=== PATIENT | female | born 1945 | race Caucasian/White ===

== ENCOUNTER 2025-01-26 03:36 | Day surgery (SDC) | payer OTHER, SELFPAY ==
[2025-01-25 19:03] VITALS: BP 168/89
[2025-01-25 19:40] LABS: % Basophils 0.4 % (0-2); % Eosinophils 0.1 % (0-6); % Immature Granulocytes 0.3 % (0-0.5); % Lymphocytes 12.9 % (20.5-51.1); % Monocytes 8.7 % (1.7-9.3); % Neutrophils 77.6 % (42.2-75.2); Absolute Monocytes 0.7 10^3/uL (0.1-0.6); Hematocrit 37.7 % (37.0-47.0); Mean Corp Hgb Conc. 34.5 g/dL (33.0-37.0); Mean Corpuscular Hgb 32.7 pg (27.0-31.0); Mean Corpuscular Volume 94.7 fL (81.0-99.0); Mean Platelet Volume 11.4 fL (7.4-10.4); Nucleated Red Blood Cells % 0 %; Platelet Count 204 10^3/uL (130-400); Red Blood Cell Count 3.98 10^6/uL (4.20-5.40); Red Cell Dist. Width 12.4 % (11.5-14.5); White Blood Cell Count 7.7 10^3/uL (4.8-10.8)
[2025-01-25 19:57] LABS: ALT (SGPT) 12 U/L (0-35); AST (SGOT) 21 U/L (14-36); Albumin 4.7 g/dl (3.5-5.0); Alkaline Phosphatase 51 U/L (38-126); Blood Urea Nitrogen 13 mg/dl (7-17); Calcium 9.8 mg/dl (8.4-10.2); Carbon Dioxide 27 mmol/L (22-30); Chloride 102 mmol/L (98-107); Glucose 127 mg/dl (70-99); Lipase 48 U/L (23-300); Potassium 4.3 mmol/L (3.5-5.1); Sodium 135 mmol/L (135-145); Total Bilirubin 0.5 mg/dl (0.2-1.3); Total Protein 7.6 g/dl (6.3-8.2); eGFR > 60.00
[2025-01-25 20:06] LABS: Troponin I < 0.012 ng/ml
--- NOTE | 2025-01-25 21:51 | ED.GENMED ---
History of Present Illness
General
Chief Complaint: Abdominal Symptoms
Source: patient
Exam Limitations: none
Time Seen by Provider: 01/25/25 21:47
Nursing documentation reviewed up to this point in time: agreed with
History of Present Illness
History of Present Illness:
Patient is a 79-year-old female presents to the ER for evaluation. Patient started with abdominal pain dry heaves and nausea last night that persisted throughout the day. She has not had dry heaves today but is nauseous and complains of lower
abdominal pain. She denies any urinary frequency urgency or dysuria. Denies any constipation.
Has had colonoscopies in the past no prior history of diverticulitis. She is on pantoprazole for gastritis .
Past History
Past History
ED Past Medical History: Psychiatric (depression) and Other (osteoporosis)
ED Past Surgical History: None
Social History
Tobacco: Non-smoker
Review of Systems
Review of Systems
Allergies reviewed?: Yes
All Other Systems: ROS reviewed and negative except as documented in HPI and ROS
Constitutional: Reports no symptoms
ABD/GI: Reports abdominal pain and nausea; Denies vomiting, diarrhea or constipated
Phy Exam
General Physical Exam
General Presentation: no apparent distress
General age: appears stated age
General Skin: warm and dry
General Habitus: normal
General Mental: alert
General Hydration: appears well hydrated
Gastrointestinal Exam
Gastrointestinal Exam: soft and other (tender rlq pain suprapubic region )
Neurological Exam
Neurological Exam: alert and oriented x3
Musculoskeletal Exam
Musculoskeletal Exam: full ROM
Skin Exam
Skin Exam: normal color and warm/dry
Psychiatric Exam
Psychiatric Exam: normal mood/affect
Course
Orders/Labs/Results
Orders:
Orders
01/25/25 18:54
Electrocardiogram (*1) Urgent
Reason for Study: Other
Other Reason for Exam: Respiratory Distress
Cardiac Monitoring- Treatment ONCE
EKG- Treatment ONCE
IV Insert/Care/Rem.- Treatment PRN
CR Chest - 2 Views Urgent
Comment:
Reason For Exam: respiratory distress
O2 Therapy [RESP] Urgent
Titrate/Wean O2 to maintain O2 sat greater than (%): 93
Special Instructions: TO MAINTAIN CONTINUOUS O2 SATS >/= 93%
Pulse Ox/cont/shift [RESP] Urgent
Quantity: 1
Special Instructions: continuous pulse ox
01/25/25 19:16
Complete Blood Count/With Diff Urgent
Comprehensive Metabolic Panel Urgent
Lipase Urgent
Troponin I Urgent
01/25/25 22:01
CT Abd/pel W Iv And Oral Contr Urgent
Comment:
Reason For Exam: suprapubic/rlq pain
Iohexol [Omnipaque] See Protocol PO NOW STA
01/26/25 00:45
Piperacillin/Tazo 3.375 Gram [Zosyn] 3.375 gram in 50 ml IV NOW
Abnormal Lab Results
01/25/25
19:16
RBC 3.98 L 10^6/uL
(4.20-5.40)
MCH 32.7 H pg
(27.0-31.0)
MPV 11.4 H fL
(7.4-10.4)
Absolute Lymphs (auto) 1.0 L 10^3/uL
(1.2-3.4)
Absolute Monos (auto) 0.7 H 10^3/uL
(0.1-0.6)
Neutrophils % 77.6 H %
(42.2-75.2)
Lymphocytes % 12.9 L %
(20.5-51.1)
Glucose 127 H mg/dl
(70-99)
01/25/25 19:16
01/25/25 19:16
Vital Signs
Initial and Last Documented VS:
Initial Vital Signs
Temp Pulse Resp BP Pulse Ox
98.7 F 66 18 168/89 98
01/25/25 19:03 01/25/25 19:03 01/25/25 19:03 01/25/25 19:03 01/25/25 19:03
Last Documented Vital Signs
Temp Pulse Resp BP Pulse Ox
98.7 F 74 16 111/89 97
01/25/25 19:03 01/26/25 00:06 01/26/25 00:06 01/26/25 00:05 01/26/25 00:08
MDM/Problems Addressed
Differential Diagnosis Includes:
Not limited to diverticulitis UTI appendicitis
MDM/Problems Addressed:
Patient is a 79-year-old female presented with abdominal pain. Patient presents awake alert no acute distress afebrile normal white count acute appendicitis on CAT scan. She is not on blood thinners. Case reviewed with surgeon on-call Dr. Duran
.will admit keep n.p.o. and order Zosyn.
*Radiology
Radiology exam reviewed: radiology read reviewed
*Pulse Oximetry
SaO2: 98
Oxygen Mode of Delivery: Room air
Patient hypoxic: no
*Critical Care Note
Total Time (30-74mins, 75-104mins- exclusive of procedures): Not Applicable
Patient Management
Discussion with other providers: Test And Turn Up Technician (DR Duran )
ED Attending Note
-
Portions of this chart may have been created with voice recognition software.� Occasional wrong word or��sound alike� substitutions may have occurred due to the inherent limitations of voice recognition software.
Discharge Plan
Departure
Patient Disposition: Admit
Date of Disposition: 01/26/25
Time of Disposition: 00:54
Admit to: Med/Surg
Admit to doctor: hospitalist
Presentation/result/management discussed w/ accepting MD/DO: Hospitalist
Patient with high blood pressure during this ER visit?: Yes
Condition: Fair
Covid-19: Not Applicable
Discharge Problem:
Acute appendicitis
Prescriptions:
No Action
pantoprazole [Protonix] 40 mg tablet,delayed release (DR/EC)
40 mg PO HS Qty: 14 0RF
raloxifene 60 mg Tablet
60 mg PO DAILY
escitalopram oxalate [Lexapro] 10 mg Tablet
10 mg PO HS
Referrals:
Sherrell Rob PA-C [Family Provider, Family Practice]
Interventions
Interventions:
*Risk Screen - Suicide Last Done: 01/25/25 19:08
*General Assessment Last Done: 01/25/25 22:01
*Neglect/Abuse Screening Last Done: 01/25/25 19:08
*ED- Fall Risk Assessment Last Done: 01/25/25 21:20
NU-Dumyyg-Dfzemzgdkq Assessment Last Done: 01/25/25 23:25
Discharge Date and Time
Print Language: POLISH
[2025-01-25 22:00] VITALS: BMI 22.7
[2025-01-25] MEDS: OMNIPAQUE 50 ML PO (22:10)
[2025-01-25 22:50] VITALS: BP 147/62
[2025-01-25 23:00] VITALS: BP 149/68
[2025-01-26] VITALS (13 sets, daily range): BP systolic 108–135; BP diastolic 50–89; BMI 21.8
[2025-01-26] MEDS: ZOSYN 50 IV ×2 (00:51→05:03)
[2025-01-26] MEDS: NSS 1000 IV ×2 (01:07→04:46)
--- NOTE | 2025-01-26 02:15 | HPS.HSE ---
Family Physician
-
Family Physician: Sherrell Rob
Chief Complaint
-
Abdominal pain
History of Present Illness
This is a 79-year-old female who has a past medical history significant for gastritis, depression and osteoporosis on raloxifene who presents with abdominal symptoms.
She reports onset of crampy abdominal pain with associated dry heaving about 24 hours ago. She denies any Pain. There is no associated radiation. She denies any vomiting. She denies any diarrhea. She has not had any fevers or chills. Patient
thought that this may be related to her gastritis and she is continue to take PPI. She denies any melena or hematochezia. She has no known sick contacts.
In the ED she has stated that she feels better but she currently reports that she still has some soreness in the right lower quadrant.
When she arrived in the emergency department she was afebrile, blood pressure was 110/80 with a pulse of 74 and she was satting 97% on room air.
She has no leukocytosis hemoglobin and platelets were normal. Electrolytes, BUN, creatinine were normal. LFTs were normal.
She had a CT of the abdomen pelvis with contrast showing dilated appendix measuring up to 12 mm and compatible with acute appendicitis, small free fluid, retrocecal location of the appendix.
Medical History
Past Medical History
Past Medical History: Reports GERD
Past Surgical History: Reports None
Social History
Tobacco: Non-smoker
Alcohol: None
Drug: None
Personal:
Living: With Family
Employment: Not Employed
Family History
Family History: Not pertinent
Allergies / Home Medications
Allergies reflects when Allergies were last updated in [facility].
Home Medications with original date entered in [facility]
Allergy/Medication List:
Allergies
Allergy/AdvReac Type Severity Reaction Status Date / Time
No Known Allergies Allergy Unverified 02/18/22 16:36
Home Medications
pantoprazole 40 mg tablet,delayed release (Protonix) 40 mg PO HS #14 tabs 02/18/22
escitalopram oxalate 10 mg tablet (Lexapro) 10 mg PO HS 01/25/25
raloxifene 60 mg tablet 60 mg PO DAILY 01/25/25
Review of Systems
-
Constitutional: Reports No Symptoms
EENT: Reports No Symptoms
Respiratory: Reports No Symptoms
Cardiac: Reports No Symptoms
Abdomen/GI: Reports No Symptoms
: Reports No Symptoms
Musculoskeletal: Reports No Symptoms
Skin: Reports No Symptoms
Neurological: Reports No Symptoms
Endocrine: Reports No Symptoms
Hematologic/Lymphatic: Reports No Symptoms
Psych: Reports No Symptoms
Physical Exam
Vital Signs
Vital Signs
Temp Pulse Resp BP Pulse Ox
98.7 F 74 16 111/89 97
01/25/25 19:03 01/26/25 00:06 01/26/25 00:06 01/26/25 00:05 01/26/25 00:08
Physical Exam
General: Well Developed, Well Nourished and No Apparent Distress
HEENT: NormoCephalic, Moist mucous membranes and Atraumatic
Respiratory: Clear
Cardiac: S1/S2 and Regular Rhythm; No Murmur or Rub
GI: Soft, Non Tender, Non Distended and Normal Bowel Sounds; No Organomegaly
Rectal: Deferred by Provider
Musculoskeletal: No Clubbing, No Cyanosis and No Edema
Skin: No Rash
Neuro: Nonfocal/grossly intact
Laboratory Results
-
01/25/25 19:16
01/25/25 19:16
Laboratory Results
Total Bilirubin 0.5 mg/dl (0.2-1.3) 01/25/25 19:16
AST 21 U/L (14-36) 01/25/25 19:16
ALT 12 U/L (0-35) 01/25/25 19:16
Alkaline Phosphatase 51 U/L (38-126) 01/25/25 19:16
Troponin I < 0.012 ng/ml 01/25/25 19:16
Lipase 48 U/L (23-300) 01/25/25 19:16
Data Reviewed
-
CT Scan: Report Reviewed by me
Lab Data: Labs Reviewed by me
Old Records: Reviewed
Impression/Plan
-
IMPRESSION:
79-year-old female with past medical history of gastritis presenting to the emergency department with approximately 1-1/2 days of abdominal pain which she described as crampy and so nausea with dry urine but no nausea or vomiting and no diarrhea.
She has been afebrile and has no leukocytosis. She has normal labs otherwise. Exam is benign. CT scan is compatible with acute appendicitis.
PLAN:
Abdominal pain with possible appendicitis on CT scan
- Admit to MedSurg
- N.p.o.
- Pain control and antiemetics
- PPI IV daily
- Continue gentle hydration
- IV Unasyn for now
- Surgery consultation
DVT prophylaxis�heparin subcu
CODE STATUS�full code
--- NOTE | 2025-01-26 02:28 | HPS.HSE ---
Addendum entered and electronically signed by Jarrell Falcon MD 01/26/25 08:51:
Patient seen and examined independently of admitting nurse practitioner. Agree with documented H&P with additions noted here.
HPI: 79-year-old female with PMH including depression, GERD and osteoporosis who presents with the acute onset of abdominal pain which started 36 hours ago. It has persisted and localized towards right abdomen. Nausea/anorexia and some dry heaves.
No similar episodes in the past. No past abdominal or other surgical history.
AFVSS
NAD AAO x 3
ABD: Soft, nondistended, tenderness to palpation localizing to the right lower quadrant. No rebound or guarding.
CT abdomen/pelvis imaging personally reviewed. Dilated fluid-filled appendix in a retrocecal location going up towards the right upper quadrant adjacent to the kidney. Some free fluid in the pelvis. No extraluminal air. Surrounding reactive
inflammatory changes but no abscess or phlegmon.
Assessment: 79-year-old female with acute appendicitis.
Reviewed with patient history, examination and CT imaging consistent with acute appendicitis. Discussed both operative and nonoperative management options and associated risks/benefits of approaches. Patient is in agreement to proceed with
appendectomy.
Laparoscopic appendectomy reviewed in detail with the patient. Discussed operative technique utilizing diagrams or drawings, alternative management options, benefits and potential risks such as but not limited to bleeding, infectious or wound
healing complications, iatrogenic injury to surrounding viscera. Discussed the typical postoperative recovery pending operative findings.
Any of the patient's concerns or questions were fully addressed and informed consent was obtained.
Plan: OR for laparoscopic appendectomy.
Empiric antibiotic coverage with Zosyn.
Nothing by mouth, IV fluid hydration and supportive care awaiting operative room availability.
SCDs for DVT prophylaxis
Original Note:
Family Physician
-
Family Physician: Sherrell Rob
Chief Complaint
-
Abdominal pain
History of Present Illness
a 79 years old female with PMH of depression, GERD, and osteoporosis Present to ER with a complain of abdominal pain that started yesterday at middle of abdomen then localized to RLQ associated with nausea and dry heaves. Pain was persisted during
the day. Denies vomiting, diarrhea, constipation, urinary symptoms, sob, chest pain or any other symptoms.
Medical History
Past Medical History
Past Medical History: Reports GERD, Psychiatric (depression ) and Other (osteoporosis)
Past Surgical History: Reports None
Social History
Tobacco: Non-smoker
Alcohol: None
Drug: None
Personal:
Living: With Family
Employment: Retired
Family History
Family History: Not pertinent
Allergies / Home Medications
Allergies reflects when Allergies were last updated in [facility].
Home Medications with original date entered in [facility]
Allergy/Medication List:
Patient Allergies
Allergy/AdvReac Type Severity Reaction Status Date / Time
No Known Allergies Allergy Unverified 02/18/22 16:36
Home Medications Table - record
�Medication �Instructions �Recorded �Confirmed
pantoprazole 40 mg tablet,delayed 40 mg PO HS #14 tabs 02/18/22 01/25/25
release (Protonix)
escitalopram oxalate 10 mg tablet 10 mg PO HS 01/25/25 01/25/25
(Lexapro)
raloxifene 60 mg tablet 60 mg PO DAILY 01/25/25 01/25/25
Review of Systems
-
A 12 point ROS was completed and negative except as noted: Yes
Constitutional: Reports No Symptoms
Respiratory: Reports No Symptoms
Cardiac: Reports No Symptoms
Abdomen/GI: Reports Abdominal Pain (RLQ) and Nausea
Physical Exam
Vital Signs
Vital Signs
Temp Pulse Resp BP Pulse Ox
98.7 F 74 16 111/89 97
01/25/25 19:03 01/26/25 00:06 01/26/25 00:06 01/26/25 00:05 01/26/25 00:08
Physical Exam
General: No Apparent Distress
Respiratory: Clear
Cardiac: Regular Rhythm
GI: Soft, Non Distended, Normal Bowel Sounds and Tender (RLT and middle of the abdomen )
Musculoskeletal: No Edema
Neuro: Awake and AO x 3
Psych: Calm
Laboratory Results
-
01/25/25 19:16
01/25/25 19:16
Laboratory Results
Total Bilirubin 0.5 mg/dl (0.2-1.3) 01/25/25 19:16
AST 21 U/L (14-36) 01/25/25 19:16
ALT 12 U/L (0-35) 01/25/25 19:16
Alkaline Phosphatase 51 U/L (38-126) 01/25/25 19:16
Troponin I < 0.012 ng/ml 01/25/25 19:16
Lipase 48 U/L (23-300) 01/25/25 19:16
Data Reviewed
-
CT Scan: Discussed with Patient
Impression/Plan
-
Abd/PLVS CT shows Dilated appendix measuring up to 12 mm compatible with acute appendicitis. Retrocecal location of the appendix. Small Free fluid. Retrocecal location of the appendix
IMPRESSION:
acute appendicitis
PLAN:
Admit/ med-surg/ Dr Duran(surgical services).
NPO
IVF
Antiemetics as needed
analgesics as needed
Zosyn
Depression
on Lexapro
Osteoporosis
on raloxifene
GERD
C/w Protonix
DVT prophylaxis Lovenox sq
Code status: full code
--- NOTE | 2025-01-26 04:48 | PTCARENOTE ---
Pt arrived 0430 from ED. Pt was able to ambulate to bed. VSS. IVF infusing. head to toe assessment complete. Oriented to room and call pedro. bed locked and in lowest position.
[2025-01-26] MEDS: ZOFRAN 4 MG IV (09:06)
--- NOTE | 2025-01-26 09:54 | CM ---
Reviewed the chart notes and spoke with the patient at the bedside. The patient anticipates going to the OR today. The patient resides with her spouse in a one story home with no steps to enter. The patient reports no DME/VN/SNF. The patient
confirmed her pharmacy of choice [facility]. CM continues to be available to patient/family and is monitoring medical plan for needs at discharge.
Plan: Discharge to home when medically stable. No needs anticipated at this time.
--- NOTE | 2025-01-26 10:25 | W.SUR.PREOP ---
Pre-Operative Surgical Note
-
I have examined this patient prior to the performance of the scheduled procedure.
The patient's condition is unchanged from the time of the current History and
Physical and the patient is able to undergo the scheduled procedure.
--- NOTE | 2025-01-26 11:53 | W.IMMPOSTOP ---
Addendum entered and electronically signed by Jarrell Falcon MD 01/26/25 12:14:
#[id number]
Original Note:
Surgical Immed Post Op Note
-
Primary Surgeon: Jarrell Falcon MD
Assisting Surgeon: None
Pre-op Diagnosis: Acute Appendicitis
Post-op Diagnosis: Acute Appendicitis
Procedure Performed: Laparoscopic Appendectomy
Anesthesia Type: GETA + 0.25% Marcaine
Specimen / Cultures: Appendix
Estimated Blood Loss: 4 mL
Complications: None immediate
Operative Findings: Indurated, distended and inflamed appendix with reactive serous fluid. No purulence, no abscess, no exudate/sloughing. Appendectomy completed without disruption of appendix.
Plan: Routine postoperative care. Advance diet as tolerated. DC home when tolerating p.o. intake, ambulating well and pain controlled
[2025-01-26] MEDS: ZOSYN IV (12:32)
--- NOTE | 2025-01-26 12:55 | PTCARENOTE ---
Patient returned to her room from PACU post laparoscopic appendectomy.She denies any pain.She is alert and oriented.Vital signs are stable. All four incisions are open to air without any drainage.The patient is in her bed with the call pedro in place.
--- NOTE | 2025-01-26 15:30 | W.DS.TRANS ---
DC Summary - [employer]
-
Discharge Instructions:
Discharge Diagnosis/Procedures Acute appendicitis. Laparoscopic appendectomy
Diet As tolerated,Regular
Activity No strenuous activity
Additional Activity No lifting over 20 pounds for 3 to 4 weeks
postop
Driving Restrictions No driving 2 to 3 days or if using narcotics
Bathing Restrictions OK to Shower
Wound Care Glue at surgical sites typically peels off in 2
to 3 weeks
Instructions:
Stand-Alone Forms:
Changes to Home Medications: No
Discharge Medications:
DC Medications w/original date entered in [facility]
pantoprazole 40 mg tablet,delayed release (Protonix) 40 mg PO HS #14 tabs 02/18/22
escitalopram oxalate 10 mg tablet (Lexapro) 10 mg PO HS 01/25/25
raloxifene 60 mg tablet 60 mg PO DAILY 01/25/25
acetaminophen 500 mg tablet (Tylenol Extra Strength) 1,000 mg (2 x 500 mg) PO Q6HPRN PRN mild pain #1 tab 01/26/25
ibuprofen 200 mg tablet 400 mg (2 x 200 mg) PO Q6HPRN PRN moderate pain #1 tab 01/26/25
oxycodone 5 mg tablet 5 mg PO Q4HPRN PRN breakthrough/severe pain #5 tabs 01/26/25
polyethylene glycol 3350 17 gram/dose oral powder (Miralax) 4 g PO DAILY PRN Constipation #119 grams 01/26/25
Home Medication Changes
Pending Results: No
== END 2025-01-26 16:25 | disposition home or self-care (01) ==
LOC: PACU 03:36
PROVIDERS: Emergency Medicine; ATTENDING PHYSICIAN Surgery; EMERGENCY PHYSICIAN Emergency Medicine; FAMILY PHYSICIAN Physician Assistant Medical
DX: K35.80 Unspecified acute appendicitis (principal)
CPT/HCPCS: 44970; 88304; 71046; 74177; 80053; 83690; 84484; 85025; 93005; 96374; 99285; G0378; Q9967